=== PATIENT | male | born 1940 | race Caucasian/White ===

== ENCOUNTER 2019-06-22 11:46 | Emergency (ER) | payer MEDICARE ==
[~2019-06-22] VITALS: Ht 193 cm; Wt 113.4 kg
[~2019-06-22 11:46] MED LIST: ATENOLOL25 MG PO; COUMADIN5 MG PO; PRAVASTATIN SOD20 MG PO
--- OUTSIDE RECORDS SUMMARY | 2019-06-22 11:49 | XMS REPORT | Summary of Care ---
Author Author [facility] Organization [facility] Address Unknown Phone Unavailable Care Team Providers Care Ink Maker Name Role Phone La Montes MD PCP Reason for Visit * Reason Comments Cardiology Follow-up Benign essential HTN Encounter Details Care Team Description Date Type Department Donal Craven MD [address] [facility] [address] [place] [address] Cardiology Follow-up (Benign essential HTN) 06/13/2019 Office Visit [facility] [address] [facility] [address] [place] [address] Allergies Comments Active Allergy Reactions Severity Noted Date Codeine Phosphate 01/21/2010 Motrin Ib 01/21/2010 Penicillins 01/21/2010 documented as of this encounter (statuses as of 06/13/2019) Medications End Date Status Medication Sig Dispensed Refills Start Date Active famotidine (PEPCID) 40 MG Take 1 Tab by 0 tablet mouth two times daily. Active Multiple Take 1 Tab by 0 Vitamins-Minerals mouth daily. (CENTRUM SILVER OR) Active mometasone (NASONEX) 50 daily. 0 MCG/ACT nasal spray Active Tamsulosin HCl 0.4 MG Take by 0 CAPS mouth daily. Active Levothyroxine Sodium 25 Take by 0 MCG CAPS mouth daily. Active Coenzyme Q10 (COQ10 OR) Take by 0 mouth daily. Active Cetirizine HCl (ZYRTEC Take by 0 OR) mouth daily. Active warfarin (COUMADIN) 2.5 TAKE 1 TABLET 90 Tab 1 03/18/201 MG tablet BY MOUTH 9 DAILY DIRECTED BY INR Active atenolol (TENORMIN) 25 MG TAKE 1 TABLET 180 Tab 0 tablet BY MOUTH TWO 9 TIMES DAILY Active pravastatin (PRAVACHOL) TAKE 1 TABLET 90 Tab 0 20 MG tablet BY MOUTH 9 DAILY documented as of this encounter (statuses as of 06/13/2019) Active Problems Problem Noted Date Leg edema, right 09/16/2018 S/P TAVR (transcatheter aortic valve replacement) 03/04/2018 Dementia 11/27/2017 History of pacemaker 12/20/2016 Severe aortic stenosis 12/20/2016 Pre-syncope 12/13/2015 [facility] 12/13/2015 Tachycardia-bradycardia syndrome [facility]) 12/13/2015 H/O amaurosis fugax 12/11/2015 Chronic inflammatory demyelinating polyneuritis [facility]) 12/11/2015 Benign essential HTN 12/11/2015 Mixed hyperlipidemia 12/11/2015 Carotid artery disease [facility]) 12/11/2015 DVT (deep venous thrombosis) [facility] 12/11/2015 Pulmonary embolism [facility] 12/11/2015 Colonic polyp 12/11/2015 Lumbosacral disc disease 12/11/2015 Bronchiolitis 12/11/2015 History of tobacco abuse 12/11/2015 Chronic renal insufficiency 12/11/2015 Sleep apnea 12/11/2015 Diverticulosis of colon 12/11/2015 Peptic ulcer disease 12/11/2015 Migraine headache 12/11/2015 GERD (gastroesophageal reflux disease) 12/11/2015 Renal cyst 12/11/2015 Seborrheic keratosis 02/09/2014 History of nonmelanoma skin cancer 02/09/2014 Rosacea 01/21/2010 BCC (basal cell carcinoma), eyelid 01/21/2010 documented as of this encounter (statuses as of 06/13/2019) Social History Date Tobacco Use Types Packs/Day Years Used Former Smoker Smokeless Tobacco: Never Used Drinks/Week oz/Week Comments Alcohol Use No Sex Assigned at Date Recorded Not on file Industry Job Start Date Occupation Not on file Not on file Not on file Travel End Travel History Travel Start No recent travel history available. documented as of this encounter Last Filed Vital Signs Reading Time Taken Comments Vital Sign 130/90 06/13/2019 1:33 PM CDT Blood Pressure 69 06/13/2019 1:23 PM CDT Pulse - - Temperature - - Respiratory Rate - - Oxygen Saturation - - Inhaled Oxygen Concentration 111.6 kg (246 lb) 06/13/2019 1:23 PM CDT Weight 193 cm (6' 4") 06/13/2019 1:23 PM CDT Height 29.94 06/13/2019 1:23 PM CDT Body Mass Index documented in this encounter Progress Notes * Donal Craven MD - 06/13/2019 2:00 PM CDT Donal Craven MD Office HP/Followup Today's Date: 06/13/2019 2:15 PM Rick Umanzor is a 75 y.o. male patient. Date of : 1940 Referring MD: La Montes MD (PCP) [address] [place] [address] , [address] [place] [address] Singh Page MD (N) Address: [address] [place], [place] [address], [place] [address] [facility] Estimated body mass index is 29.94 kg/m as calculated from the following: Height as of this encounter: 6' 4" (1.93 m). Weight as of this encounter: 246 lb (111.6 kg). Body surface area is 2.45 meters squared. Present HPI 06/13/19 SInce Last Visit the following is noted:Underwent implant of Adrienne S3#26 on 01/13 11/29, Afib on Cd Standard mild AUGUSTIN and leg swelling Not on Lasix Broke left femur (pinned) February 2019 OPV 09/16/18 SInce Last Visit the following is noted: complains that he has swelling of both extremities x 2 weeks but R>L Some redness Received Lasix from LMD Still some SOB with exertion As usual all the history is from her INR=3.5 OPV 03/04/18 SInce Last Visit the following is noted: Underwent implant of Adrienne S3#26 on 02/03/18 Much improved Still some SOB but less fatigue OPV 11/26/17 Went to [facility] 11/24/17 Low BP; BUN-22, Cr=1.46; H/H= JEY=621; CXR-OK Mainly exeertional dyspnea Recent upper RSCP Neuro started Zoloft for dementia but she thinks it made him with worsening SOB, thus it was stopped OPV 12/18/16 VVI implant 09/30/16 for symptomatic bradycardia in chronic Atrial fibrillation He is really not any better Still fatigued and SOB No angina INR=3.4 Took steroids for bad left knee OPV 09/25/16 SInce Last Visit the following is noted: he has had a URI Symptoms include lethargy and exertional dyspnea Also he has had progressive deterioration in his cognitive function. Seen by thiago al neurologist No angina Last EMILIANO~ 1.2 with P/M=50/30 OPV 11/25/15 BOOP Progressive atrial fibrillation RICAS - 02/05/10 Many co-morbidities Having pre syncopal episodes which are increasing in frquency. Two this month All exertional Denies chest pain Knownincreasing Usually sees Dr Rivas (pulmonary) but saw Dr Mace in his place- CT and other te sts ordered. Though he has NO claudication, pt was prescribed Trental?? Angiography 01/26/18 TTE-implant of Adrienne S3#26 on 02/03/18; Mitral annular calcium TTE-DATE 01/16/14 03/29/15 12/13/15 06/12/16 12/19/16 11/11/17 02/04/18 03/04/18 09/16/18 06/13/19 LVEF 60 60 60 60 55 55 60 60 60 60 DI 0.30 0.27 0.61 0.51 0.44 0.45 P/M 33/18 44/24 43/23 49/22 56/35 60/32 22/ 1606/08 Max Adan 2.88 3.31 2.92 3.14 3.75 3.87 2.36 2.04 2.40 2.4 EMILIANO 1.7 1.5 1.2 1.1 1.0 1.0 pPA 45 45 40-45 TR 2+ 2+ CX-RAYS- DATE: 10/04/15 Large heart, clear lungs CT- Chest DATE:11/26/15-outside Main PA is 3.9cm Mild PIF emphysema DALLIN DOPPLER- DATE: 07/28/12 Normal Repeat outside 11/27/15-non specific CAROTID DOPPLER- DATE: 12/13/15 Right Carotid: patent stent (02/05/10) All others OK VENOUS DOPPLER- DATE:11/06/10 Pro OK HOLTERs- DATES: May 2016 Atrial fib with pauses> 4.0 sec PREVIOUS PACER CHECKs-DATES: PPM-DATE 09/30/16 03/21/19 Company BSCI BSCI Mode VVIR VVIR DOI 09/30/16 09/30/16 Gen Change EOL ~2022 ~2022 A/V pace Xx % a pacing yy % v pacing 52 % pacing other Allergies: Allergies Allergen Reactions Codeine Phosphate Motrin Ib Pcn [Penicillins] Past Medical History Diagnosis H/O amaurosis fugax Chronic inflammatory demyelinating polyneuritis Aortic valve disease-progressive by TTE Benign essential HTN Mixed hyperlipidemia Carotid artery disease- [facility] 02/09/10 DVT (deep venous thrombosis) Pulmonary embolism Colonic polyp Lumbosacral disc disease Bronchiolitis History of tobacco abuse Chronic renal insufficiency Sleep apnea Diverticulosis of colon Peptic ulcer disease Migraine headache GERD (gastroesophageal reflux disease) Renal cyst Atrial fibrillation with slow VR Surgical History: Past Surgical History: Procedure Laterality Date HX BACK SURGERY HX CHOLECYSTECTOMY, LAPAROSCOPIC HX LUMBAR DISC SURGERY HX POLYPECTOMY HX SHOULDER SURGERY Right HX SKIN CANCER EXCISION BCC Social History: Social History Socioeconomic History Marital status: Spouse name: Not on file Number of children: Not on file Years of education: Not on file Highest education level: Not on file Occupational History Occupation: retired Social Needs Financial resource strain: Not on file Food insecurity: Worry: Not on file Inability: Not on file Transportation needs: Medical: Not on file Non-medical: Not on file Tobacco Use Smoking status: Former Smoker Smokeless tobacco: Never Used Substance and Sexual Activity Alcohol use: No Drug use: No Sexual activity: Not on file Lifestyle Physical activity: Days per week: Not on file Minutes per session: Not on file Stress: Not on file Relationships Social connections: Talks on phone: Not on file Gets together: Not on file Attends sabianism service: Not on file Active member of club or organization: Not on file Attends meetings of clubs or organizations: Not on file Relationship status: Not on file Intimate partner violence: Fear of current or ex partner: Not on file Emotionally abused: Not on file Physically abused: Not on file Forced sexual activity: Not on file Other Topics Concerns: Not on file Social History Narrative Not on file Family History: Family History Problem Relation Name Age of Onset Hypertension Father CVA/Stroke Father Heart Attack Father CVA/Stroke Brother Cancer Mother Diabetes Neg Hx Cardiac Risk assessment: Hypertension- yes Hypercholesterol- yes Obesity- yes Postive Family History- yes Diabetes Mellitus- no Medications: atenolol (TENORMIN) 25 MG tablet TAKE 1 TABLET BY MOUTH TWO TIMES DAILY Cetirizine HCl (ZYRTEC OR) Take by mouth daily. Coenzyme Q10 (COQ10 OR) Take by mouth daily. famotidine (PEPCID) 40 MG tablet Take 1 Tab by mouth two times daily. Levothyroxine Sodium 25 MCG CAPS Take by mouth daily. mometasone (NASONEX) 50 MCG/ACT nasal spray daily. Multiple Vitamins-Minerals (CENTRUM SILVER OR) Take 1 Tab by mouth daily. pravastatin (PRAVACHOL) 20 MG tablet TAKE 1 TABLET BY MOUTH DAILY Tamsulosin HCl 0.4 MG CAPS Take by mouth daily. warfarin (COUMADIN) 2.5 MG tablet TAKE 1 TABLET BY MOUTH DAILY DIRECTED BY INR 12 Point ROS: General: fatigue ENT: nasal congestion, sinusitis Cardiovascular: shortness of breath on exertion GI: diverticulitis/osis : nighttime urination (nocturia) Musculoskeletal: back pain, arthritis Endocrine: hypoglycemia Allergic/Immunologic: persistent infections Physical Exam HG CARDI VITALS 06/13/2019 06/13/2019 Height 6' 4" - Weight 246 lb - BP 126/80 130/90 BP Location right arm left arm Patient Position Sitting - Pulse 69 - Resp - - BSA (Calculated - sq m) - - BMI (Calculated) - - Some recent data might be hidden General Appearance: Alert, cooperative, no distress, appears stated age Head: Normocephalic, without obvious abnormality, atraumatic Eyes: PERRL, conjunctiva/corneas clear, EOM's intact, fundi Ears: Normal TM's and external ear canals, both ears Nose: Nares normal, septum midline, mucosa normal, no drainage or sinus ten derness Throat: Lips, mucosa, and tongue normal; teeth and gums normal Neck: Supple, symmetrical, trachea midline, no adenopathy; thyroid: No enlargement/tenderness/nodules; no carotid bruit or JVD Back: Symmetric, no curvature, ROM normal, no CVA tenderness Lungs: Clear to auscultation bilaterally, respirations unlabored Chest wall: No tenderness or deformity Heart: irregular rate and rhythm, S1 S2 Murmur: none Abdomen: Soft, non-tender, bowel sounds active all four quadrants, no masses, no organomegaly Extremities: Extremities normal, atraumatic, no cyanosis or edema Skin: Skin color, texture, turgor normal, no rashes or lesions Neurologic: CNII-XII intact. Normal strength, sensation and reflexes throughout Vascular Physical Examination- Right lower extremity 2+ edema EC06/13/19 09/16/18 02/13/18 11/16/17 DECISION MAKING PLANS for PROBLEMS- Patient Active Problem List Diagnosis Rosacea BCC (basal cell carcinoma), eyelid Seborrheic keratosis History of nonmelanoma skin cancer H/O amaurosis fugax Chronic inflammatory demyelinating polyneuritis ([facility]) Benign essential HTN Mixed hyperlipidemia Carotid artery disease ([facility]) DVT (deep venous thrombosis) ([facility]) Pulmonary embolism ([facility]) Colonic polyp Lumbosacral disc disease Bronchiolitis History of tobacco abuse Chronic renal insufficiency Sleep apnea Diverticulosis of colon Peptic ulcer disease Migraine headache GERD (gastroesophageal reflux disease) Renal cyst Pre-syncope Atrial fibrillation ([facility]) Tachycardia-bradycardia syndrome ([facility]) History of pacemaker Severe aortic stenosis Dementia S/P TAVR (transcatheter aortic valve replacement) Leg edema, right TODAY'S PLAN-all old records reviewed today 1-Fax appropriate records to LMD 2- No changes made today Donal Craven MD FAC FACP [facility] Donal Craven MD FAC FACP [facility] Clinical Professor [facility] Director Market Research of PVD Services at [facility] Chief of Peripheral Vascular Medicine at [facility] at [facility] OLaurenMiguelito Medical Coker [id number] [place] [address] [email or web address] documented in this encounter Plan of Treatment Care Team Description Date Type Specialty 06/20/2019 Procedure Cardiology Visit-Tech Performed Health Maintenance Due Date Last Done Comments MEDICARE AWV 1940 TETANUS SHOT (ADULT) 1953 BMI FOLLOW UP PLAN 1956 FALL SCREEN 2003 PREVNAR >=65 (PCV13) 2003 FLU VACCINE > 6 MONTHS 04/14/2019 09/25/2016 (Declined) PNEUMOVAX >=65 (PPSV23) Completed 07/23/2009 documented as of this encounter Procedures Comments Procedure Name Priority Date/Time Associated Diagnosis ELECTROCARDIOGRAM Routine 06/13/2019 Benign essential HTN COMPLETE 2:37 PM CDT documented in this encounter Results * ELECTROCARDIOGRAM COMPLETE (06/13/2019 2:37 PM CDT) Narrative Performed At Result approved by Donal Craven MD on 06/13/19 documented in this encounter Visit Diagnoses Diagnosis S/P TAVR (transcatheter aortic valve replacement) - Primary Benign essential HTN Essential hypertension, benign documented in this encounter Insurance Type Payer Benefit Subscriber ID Effective Phone Address Plan / Dates Group Medicare MEDICARE MEDICARE xxxxxxxxxxx 2003- [address] Present [id number] [place] [address] Medicare [employer] AARP xxxxxxxxxxx Effective [address] MEDICARE [place] all [id number] SUPPLEMENT dates [facility] [place] [address] documented as of this encounter
--- OUTSIDE RECORDS SUMMARY | 2019-06-22 11:49 | XMS REPORT ---
Author Author [facility] Address Unknown Phone Unavailable Care Team Providers Care Linux Support Engineer Name Role Phone TOBY GOSS Unavailable Unavailable Problems This patient has no known problems. Allergies, Adverse Reactions, Alerts This patient has no known allergies or adverse reactions. Medications This patient has no known medications. Results Test Description Test Time Test Comments Text Results Atomic Results Result Comments BASIC METABOLIC PANEL 2018-02-04 05:54:00 SODIUM (BEAKER) (test fqjo=973) 143 meq/L 136-145 POTASSIUM (BEAKER) (test qfpa=330) 4.1 meq/L 3.5-5.1 CHLORIDE (BEAKER) (test zewa=936) 111 meq/L 98-107 CO2 (BEAKER) (test mtrs=179) 22 meq/L 22-29 BLOOD UREA NITROGEN (BEAKER) (test mngv=149) 16 mg/dL 7-21 CREATININE (BEAKER) (test yghr=122) 1.09 mg/dL 0.57-1.25 GLUCOSE RANDOM (BEAKER) (test mcjt=992) 94 mg/dL 70-105 CALCIUM (BEAKER) (test pked=698) 8.9 mg/dL 8.4-10.2 EGFR (BEAKER) (test hejd=9840) 65 mL/min/1.73 sq m ESTIMATED GFR IS NOT ACCURATE CREATININE CLEARANCE IN PREDICTING GLOMERULAR FILTRATION RATE. ESTIMATED GFR IS NOT APPLICABLE FOR DIALYSIS PATIENTS. CBC (HEMOGRAM ONLY)2018-02-04 05:35:00* Test Item Value Reference Range Comments WHITE BLOOD CELL COUNT (BEAKER) (test qurn=459) 7.3 K/ L 3.5-10.5 RED BLOOD CELL COUNT (BEAKER) (test hsgh=398) 4.10 M/ L 4.63-6.08 HEMOGLOBIN (BEAKER) (test gpqs=353) 11.2 GM/DL 13.7-17.5 HEMATOCRIT (BEAKER) (test zclq=720) 35.8 % 40.1-51.0 MEAN CORPUSCULAR VOLUME (BEAKER) (test hyjk=723) 87.3 fL 79.0-92.2 MEAN CORPUSCULAR HEMOGLOBIN (BEAKER) (test lfpj=041) 27.3 pg 25.7-32.2 MEAN CORPUSCULAR HEMOGLOBIN CONC (BEAKER) (test jdvb=033) 31.3 GM/DL 32.3-36.5 RED CELL DISTRIBUTION WIDTH (BEAKER) (test nqrl=031) 14.6 % 11.6-14.4 PLATELET COUNT (BEAKER) (test fckg=642) 166 K/CU MM 150-450 MEAN PLATELET VOLUME (BEAKER) (test oojm=786) 9.9 fL 9.4-12.4 NUCLEATED RED BLOOD CELLS (BEAKER) (test qvoc=001) 0 /100 WBC 0-0 [id number] 10:23:00* Test Item Value Reference Range Comments ACTIVATED CLOTTING TIME (BEAKER) (test olrd=310) 109 sec TESTED AT [address] [address] [id number] 09:47:00* Test Item Value Reference Range Comments ACTIVATED CLOTTING TIME (BEAKER) (test alqq=394) 252 sec TESTED AT [address] [address] [id number] 09:30:00* Test Item Value Reference Range Comments ACTIVATED CLOTTING TIME (BEAKER) (test rgbi=991) 230 sec TESTED AT [address] [address] PROTHROMBIN [id number] 06:58:00* Test Item Value Reference Range Comments PROTIME (BEAKER) (test owei=287) 15.9 seconds 11.7-14.7 INR (BEAKER) (test kvgs=679) 1.3 <=5.9 RECOMMENDED COUMADIN/WARFARIN INR THERAPY RANGESSTANDARD DOSE: 2.0 - 3.0 Inclu ignacio: PROPHYLAXIS for venous thrombosis, systemic embolization; TREATMENT for meaghan ous thrombosis and/or pulmonary embolus.HIGH RISK: Target INR is 2.5-3.5 for pat ients with mechanical heart valves.Within 24 hours, if on CoumadinBUN AND [id number] 18:57:00* Test Item Value Reference Range Comments BLOOD UREA NITROGEN (BEAKER) (test atyf=136) 17 mg/dL 7-21 CREATININE (BEAKER) (test dgiv=166) 1.23 mg/dL 0.57-1.25 EGFR (BEAKER) (test askz=0406) 57 mL/min/1.73 sq m ESTIMATED GFR IS NOT ACCURATE CREATININE CLEARANCE IN PREDICTING GLOMERULAR FILTRATION RATE. ESTIMATED GFR IS NOT APPLICABLE FOR DIALYSIS PATIENTS. B-TYPE NATRIURETIC FACTOR (BNP)2018-01-26 11:33:00* Test Item Value Reference Range Comments B-TYPE NATRIURETIC PEPTIDE (BEAKER) (test ospd=017) 370 pg/mL 0-100 [id number] 11:19:00* Test Item Value Reference Range Comments ALBUMIN (BEAKER) (test hatp=7864) 3.7 g/dL 3.5-5.0 PROTHROMBIN TIME/[id number] 10:33:00* Test Item Value Reference Range Comments PROTIME (BEAUBREE) (test wkms=231) 16.9 seconds 11.7-14.7 INR (BEAKER) (test jspx=347) 1.4 <=5.9 RECOMMENDED COUMADIN/WARFARIN INR THERAPY RANGESSTANDARD DOSE: 2.0 - 3.0 Inclu ignacio: PROPHYLAXIS for venous thrombosis, systemic embolization; TREATMENT for meaghan ous thrombosis and/or pulmonary embolus.HIGH RISK: Target INR is 2.5-3.5 for pat ients with mechanical heart valves.[id number] 08:21:00* Test Item Value Reference Range Comments POC-CREATININE (BEAUBREE) (test jnwl=5483) 1.3 mg/dL 0.6-1.3 TESTED AT [facility] [address] [facility] [address] POC-EGFR (BEAUBREE) (test sref=9713) 53 mL/min/1.73M2 CT, CTA, [id number] 17:08:00Addendum BeginsREPORT STATUS:A ADDENDUM: I agree with the nonvascular findings as reported by Dr. Hilario. A 7 mm nodule is seen in the right middle lobe, slightly increased from 2013 when it measured 5 mm. Follow-up chest CT in 6-12 months is recommended. Signed: Heriberto, Dinh MDReport Verified Date/Time: 01/13/2018 17:08:19 Reading Location: [place] [address] Angio Body Reading RoomAddendum EndsFINAL REPORT CT angiography of the thoracoabdominal aorta and pelvic arteries, 13 Jan 2018 INDICATION: This is a 77 year old male with a diagnosis of aortic stenosis presents for preprocedure TAVR assessment. This study is performed in an attempt to avoid an invasive procedure. TECHNIQUE: Spiral acquisition before and during intravenous contrast administration using a Leno multidetector CT scanner. Images were obtained before and during the dynamic passage of intravenous contrast material. Multi-planar 3-D volume-rendering reconstruction was performed using an independent workstation interactively by the interpreting physician as well as the 3-D specialist for optimal visualization of the thoracoabdominal aorta, the pelvic arteries as well as its proximal branches. Please refer to the contrast sheet scanned in the EPIC system for the amount and route of contrast given. This exam was performed according to our departmental dose-optimisation programme, which includes automated exposure control, adjustment of the mA and/or kV according to patient size and/or use of iterative reconstruction technique. Dose modulation, iterative reconstruction, and/or weight based adjustment of the mA/kV was utilized to reduce the radiation dose to as low as reasonably achievable. FINDINGS: VASCULAR: An electronic device is identified in the left upper chest, with pacing lead identified in the right- sided cardiac chambers. The central pulmonary artery is normal in calibre. The cardiac chamber demonstrate normal atrioventricular and ventriculoarterial concordance, systemic and pulmonary venous return. Coronary artery origins are normal and coronary artery calcifications identified in the LAD and LCx territor y. Minimal mitral annular calcification is identified in the posterior mitral va lve annulus. The left ventricle is normal in size. Left atrial enlargement is id entified. Patient has a diagnosis of aortic stenosis. Aortic valve is tricuspid. Agatston score is approximately 3085. The location of aortic valvular calcifica tion can be seen in reformatted data set sent to PACS. Regarding the aorta, ther e is only minimal calcification seen in the aortic root and thereafter remainder of the ascending thoracic aorta is free of calcification. There is mild calcifi cation seen in the transverse arch, descending thoracic aorta, and moderate calc ification seen in the infrarenal abdominal aorta. No acute aortic pathology is i dentified and no dissection or contained rupture is seen. However, there is athe rosclerotic ulceration identified in the distal infrarenal abdominal aorta, imag e 401 representing a spectrum of both calcified and noncalcified granuloma. Arch vessel branching pattern is normal and the visualised arch vessel has scattered calcific atherosclerosis identified. The left subclavian artery, at image 23, m easure approximately 6 to 7 mm in diameter. The right subclavian artery, at imag e 17, measure 9 to 10 mm in diameter. The coeliac axis, SMA have no obstructive lesion identified, however, calcific atherosclerosis seen in the celiac axis and calcific and noncalcific atherosclerosis that is nonobstructive is seen in the SMA. Replaced right hepatic artery is identified, a common variant. The EFE is p atent. There are single left and right renal arteries with no obstructive lesion identified. The common iliac, external iliac, common femoral, and the visualized superficial femoral arteries have no obstructive lesion identified. There is a lso atherosclerotic ulceration identified in the right common iliac arteries, fo r example image 476. Refer to below regarding the minimum dimensions. Dimensions that may be helpful TAVR as follows: Only minimal calcification is seen in the aortic root. The major and minor aortic annulus diameter measures 29.2 and 21.8 mm, respectively. The aortic annulus perimeter measured 83 mm and the cross-sect ional area measures 520 mm2. The aortic annulus diameter at the traditional LVOT and coronal LVOT measures 22.0 and 27.8 mm, respectively. Measurement was made using 30% reconstruction, with the least motion artefact. For reference purpose, per [employer] S3 brochure, recommendation are as follows: CT area between 273 to 345 mm2 (20 mm valve); 338 to 430 mm2 (23 mm valve); 430 to 546 mm2 (26 mm valve ); 540 to 683 mm2 (29 mm valve). For reference purpose, per [employer] b rochure, recommendation are as follows: CT perimeter between 56.5-62.8 mm (23 mm valve); 62.8-72.3 mm (26 mm valve); 72.3-81.7 mm (29 mm valve); and 81.7-94.2. mm (34 mm valve). Agatston Score is 3085. The sinus of Valsalva height to the takeoff of the coronary artery ostium, RCC (diastole): 13.5 mmThe sinus of Valsa lva height and the takeoff of the coronary artery ostium, LCC (diastole): 15.0 m m The sinus of Valsalva diameter, RCC (diastole): 32.8 mmThe sinus of Valsalva d iameter, LCC (diastole): 32.5 mmThe sinus of Valsalva diameter, NCC (diastole): 36.5 mm The sinotubular junction measures approximately 30.7 x 32.5 mm. The aort ic root angulation measures 49.6 degrees. The minimal and perpendicular abdomina l aortic diameter measure 13.4 and 16.7 mm, respectively, at the level of the at herosclerotic ulceration, at image 397. There is no evidence of thoracoabdomina l aortic aneurysm or stent placement present. The minimum and the perpendicular left common iliac artery measures 10.2 and 10.9 mm, respectively with no tortuo sity and mild calcific atherosclerosis present. The minimum and the perpendicul ar left external iliac artery measures 7.6 and 8.2 mm, respectively with mild to moderate tortuosity and no calcific atherosclerosis present. The minimum and the perpendicular left femoral artery measures 7.4 and 9.0 mm, respectively with minimal tortuosity and mild calcific atherosclerosis present. The minimum and the perpendicular right common iliac artery measures 8.5 and 9.0 mm, respective ly with mild tortuosity and mild calcific atherosclerosis present, at image 48 1 with localized atherosclerotic ulceration present. The minimum and the perpend icular right external iliac artery measures 8.1 and 8.3 mm, respectively with m eve-ao-doedqipq tortuosity and no calcific atherosclerosis present. The minimu m and the perpendicular right femoral artery measures 8.6 and 9.1 mm, respective ly with mild tortuosity and mild calcific atherosclerosis present. NONVASCULAR: The visualised thyroid gland has focal calcification identified, in the right th yroid lobe, at image 26, measure 5 to 6 mm in diameter. This can be further asse ssed by dedicated thyroid ultrasound scan. The chest wall and mediastinum has no acute abnormalities identified. No significant adenopathy is seen. However, the re is some small lymph nodes identified, for example, in the left hilum, measure less than 1 cm in size. In the lung windows, no obvious endobronchial lesion is seen, and no pleural effusions identified. Some dependent changes are seen in t he lung bases. Some subsegmental atelectatic changes are noted. A nodule is iden tified in the right middle lobe, at image 107, measures approximately 7 to 8 mm in diameter. In 2013, this structure measures approximately 5 to 6 mm in diamete r, image using different spatial resolution. No other nodule is identified. In t he abdomen, the liver and spleen appears unremarkable. The liver edge is smooth. No abnormal enhancing structure is identified. Hypodensities are seen in the li neeta, some are too small to characterize. The larger ones have no enhancement aft er contrast administration indicating simple in nature. The largest one, at imag e 282, measure 3.6 cm in diameter. The adrenal glands are not enlarged. The panc reas appears unremarkable. The gallbladder is not well visualized. No acute tonio l pathology is seen and no hydronephrosis or perirenal fluid collections identif ied. Small renal stones are seen, that is nonobstructive, and at image 69 of the left kidney, measure 8 mm in diameter. In addition, renal cysts identified in t he lateral aspect of the right kidney, image 337, measure 3.1 cm in diameter wit h no enhancement after contrast administration suggesting proteinaceous/hemorrha gic in nature. Another cyst is also identified, again with no significant enhanc ement seen. Bowel is not well assessed by CT angiography as enteric contrast is not given. No obvious bowel dilation is identified. Colonic diverticulum is seen in the distal colon with no evidence of acute diverticulitis. Bilateral fat-con taining inguinal hernia is seen left greater than the right. The prostate gland is mildly prominent. The bladder is unremarkable. No free air or free fluid seen abdomen and pelvis. No significant retroperitoneal adenopathy is identified. In the bony windows, no acute bony pathology is seen. Some degenerative changes are noted. CONCLUSIONS: 1. Patient has a diagnosis of aortic stenosis. The aortic valve is tricuspid. Agatston score is over 3000. By planimetry, the aortic valve area is approximately 93 sq mm. Only minimal mitral annular calcification is s een. No obvious calcification is seen in the aortic root. No acute aortic pathol ogy is identified. 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 Dimensions that may be helpful for TAVR as described above. 2. Coronary atherosclerosis seen in the left coronary system. 3. No acute pulmonary pathology is identified. A 7 to 8 mm nodule seen in the right middle lobe. This is already been present in 2 013, however, in 2013, it measures 5 to 6 mm in diameter suggesting minimal incr eased in size. This could be followed in 6-12 months time. Nevertheless, an adde ndum will be dictated thereafter, if needed. 4. Other findings as described abo ve. Calcification is identified in the right thyroid lobe that can be further as sessed by dedicated ultrasound scan of the thyroid. 5. An addendum will dictate d by the Sign Builder Radiologist regarding the nonvascular findings. Signed: Deshawn Mcdonald MDReport Verified Date/Time: 01/13/2018 16:08:18 Reading Location : [place] [address] Cardiology MRI , CTA [id number] 17:08:00Addendum BeginsREPORT STATUS:A ADDENDUM: I agree with the nonvascular findings as reported by Dr. Hilario. A 7 mm nodule is seen in the right middle lobe, slightly increased from 2013 when it measured 5 mm. Follow-up chest CT in 6-12 months is recommended. Signed: Dinh Louis Verified Date/Time: 01/13/2018 17:08:19 Reading Location: [place] [id number] Angio Body Reading R oomAddendum EndsFINAL REPORT CT angiography of the thorac oabdominal aorta and pelvic arteries, 13 Jan 2018 INDICATION: This is a 77 year old male with a diagnosis of aortic stenosis presents for preprocedure TAVR ass essment. This study is performed in an attempt to avoid an invasive procedure. TECHNIQUE: Spiral acquisition before and during intravenous contrast administrat ion using a Leno multidetector CT scanner. Images were obtained before and du ring the dynamic passage of intravenous contrast material. Multi-planar 3-D vol ume-rendering reconstruction was performed using an independent workstation inte ractively by the interpreting physician as well as the 3-D specialist for optima l visualization of the thoracoabdominal aorta, the pelvic arteries as well as it s proximal branches. Please refer to the contrast sheet scanned in the [facility] syst em for the amount and route of contrast given. This exam was performed according to our departmental dose-optimisation programme, which includes automated expos ure control, adjustment of the mA and/or kV according to patient size and/or use of iterative reconstruction technique. Dose modulation, iterative reconstructio n, and/or weight based adjustment of the mA/kV was utilized to reduce the radiat ion dose to as low as reasonably achievable. FINDINGS: VASCULAR: An electronic device is identified in the left upper chest, with pacing lead identified in the right-sided cardiac chambers. The central pulmonary artery is normal in calibre. The cardiac chamber demonstrate normal atrioventricular and ventriculoarterial concordance, systemic and pulmonary venous return. Coronary artery origins are normal and coronary artery calcifications identified in the LAD and LCx territor y. Minimal mitral annular calcification is identified in the posterior mitral va lve annulus. The left ventricle is normal in size. Left atrial enlargement is id entified. Patient has a diagnosis of aortic stenosis. Aortic valve is tricuspid. Agatston score is approximately 3085. The location of aortic valvular calcifica tion can be seen in reformatted data set sent to PACS. Regarding the aorta, ther e is only minimal calcification seen in the aortic root and thereafter remainder of the ascending thoracic aorta is free of calcification. There is mild calcifi cation seen in the transverse arch, descending thoracic aorta, and moderate calc ification seen in the infrarenal abdominal aorta. No acute aortic pathology is i dentified and no dissection or contained rupture is seen. However, there is athe rosclerotic ulceration identified in the distal infrarenal abdominal aorta, imag e 401 representing a spectrum of both calcified and noncalcified granuloma. Arch vessel branching pattern is normal and the visualised arch vessel has scattered calcific atherosclerosis identified. The left subclavian artery, at image 23, m easure approximately 6 to 7 mm in diameter. The right subclavian artery, at imag e 17, measure 9 to 10 mm in diameter. The coeliac axis, SMA have no obstructive lesion identified, however, calcific atherosclerosis seen in the celiac axis and calcific and noncalcific atherosclerosis that is nonobstructive is seen in the SMA. Replaced right hepatic artery is identified, a common variant. The EFE is p atent. There are single left and right renal arteries with no obstructive lesion identified. The common iliac, external iliac, common femoral, and the visualized superficial femoral arteries have no obstructive lesion identified. There is a lso atherosclerotic ulceration identified in the right common iliac arteries, fo r example image 476. Refer to below regarding the minimum dimensions. Dimensions that may be helpful TAVR as follows: Only minimal calcification is seen in the aortic root. The major and minor aortic annulus diameter measures 29.2 and 21.8 mm, respectively. The aortic annulus perimeter measured 83 mm and the cross-sect ional area measures 520 mm2. The aortic annulus diameter at the traditional LVOT and coronal LVOT measures 22.0 and 27.8 mm, respectively. Measurement was made using 30% reconstruction, with the least motion artefact. For reference purpose, per [employer] S3 brochure, recommendation are as follows: CT area between 273 to 345 mm2 (20 mm valve); 338 to 430 mm2 (23 mm valve); 430 to 546 mm2 (26 mm valve ); 540 to 683 mm2 (29 mm valve). For reference purpose, per [employer] b rochure, recommendation are as follows: CT perimeter between 56.5-62.8 mm (23 mm valve); 62.8-72.3 mm (26 mm valve); 72.3-81.7 mm (29 mm valve); and 81.7-94.2. mm (34 mm valve). Agatston Score is 3085. The sinus of Valsalva height to the takeoff of the coronary artery ostium, RCC (diastole): 13.5 mmThe sinus of Valsa lva height and the takeoff of the coronary artery ostium, LCC (diastole): 15.0 m m The sinus of Valsalva diameter, RCC (diastole): 32.8 mmThe sinus of Valsalva d iameter, LCC (diastole): 32.5 mmThe sinus of Valsalva diameter, NCC (diastole): 36.5 mm The sinotubular junction measures approximately 30.7 x 32.5 mm. The aort ic root angulation measures 49.6 degrees. The minimal and perpendicular abdomina l aortic diameter measure 13.4 and 16.7 mm, respectively, at the level of the at herosclerotic ulceration, at image 397. There is no evidence of thoracoabdomina l aortic aneurysm or stent placement present. The minimum and the perpendicular left common iliac artery measures 10.2 and 10.9 mm, respectively with no tortuo sity and mild calcific atherosclerosis present. The minimum and the perpendicul ar left external iliac artery measures 7.6 and 8.2 mm, respectively with mild to moderate tortuosity and no calcific atherosclerosis present. The minimum and the perpendicular left femoral artery measures 7.4 and 9.0 mm, respectively with minimal tortuosity and mild calcific atherosclerosis present. The minimum and the perpendicular right common iliac artery measures 8.5 and 9.0 mm, respective ly with mild tortuosity and mild calcific atherosclerosis present, at image 48 1 with localized atherosclerotic ulceration present. The minimum and the perpend icular right external iliac artery measures 8.1 and 8.3 mm, respectively with m ggb-ga-hwmcsaid tortuosity and no calcific atherosclerosis present. The minimu m and the perpendicular right femoral artery measures 8.6 and 9.1 mm, respective ly with mild tortuosity and mild calcific atherosclerosis present. NONVASCULAR: The visualised thyroid gland has focal calcification identified, in the right th yroid lobe, at image 26, measure 5 to 6 mm in diameter. This can be further asse ssed by dedicated thyroid ultrasound scan. The chest wall and mediastinum has no acute abnormalities identified. No significant adenopathy is seen. However, the re is some small lymph nodes identified, for example, in the left hilum, measure less than 1 cm in size. In the lung windows, no obvious endobronchial lesion is seen, and no pleural effusions identified. Some dependent changes are seen in t he lung bases. Some subsegmental atelectatic changes are noted. A nodule is iden tified in the right middle lobe, at image 107, measures approximately 7 to 8 mm in diameter. In 2013, this structure measures approximately 5 to 6 mm in diamete r, image using different spatial resolution. No other nodule is identified. In t he abdomen, the liver and spleen appears unremarkable. The liver edge is smooth. No abnormal enhancing structure is identified. Hypodensities are seen in the li neeta, some are too small to characterize. The larger ones have no enhancement aft er contrast administration indicating simple in nature. The largest one, at imag e 282, measure 3.6 cm in diameter. The adrenal glands are not enlarged. The panc reas appears unremarkable. The gallbladder is not well visualized. No acute tonio l pathology is seen and no hydronephrosis or perirenal fluid collections identif ied. Small renal stones are seen, that is nonobstructive, and at image 69 of the left kidney, measure 8 mm in diameter. In addition, renal cysts identified in t he lateral aspect of the right kidney, image 337, measure 3.1 cm in diameter wit h no enhancement after contrast administration suggesting proteinaceous/hemorrha gic in nature. Another cyst is also identified, again with no significant enhanc ement seen. Bowel is not well assessed by CT angiography as enteric contrast is not given. No obvious bowel dilation is identified. Colonic diverticulum is seen in the distal colon with no evidence of acute diverticulitis. Bilateral fat-con taining inguinal hernia is seen left greater than the right. The prostate gland is mildly prominent. The bladder is unremarkable. No free air or free fluid seen abdomen and pelvis. No significant retroperitoneal adenopathy is identified. In the bony windows, no acute bony pathology is seen. Some degenerative changes are noted. CONCLUSIONS: 1. Patient has a diagnosis of aortic stenosis. The aortic valve is tricuspid. Agatston score is over 3000. By planimetry, the aortic valve area is approximately 93 sq mm. Only minimal mitral annular calcification is s een. No obvious calcification is seen in the aortic root. No acute aortic pathol ogy is identified. 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 Dimensions that may be helpful for TAVR as described above. 2. Coronary atherosclerosis seen in the left coronary system. 3. No acute pulmonary pathology is identified. A 7 to 8 mm nodule seen in the right middle lobe. This is already been present in 2 013, however, in 2012, it measures 5 to 6 mm in diameter suggesting minimal incr eased in size. This could be followed in 6-12 months time. Nevertheless, an adde ndum will be dictated thereafter, if needed. 4. Other findings as described abo ve. Calcification is identified in the right thyroid lobe that can be further as sessed by dedicated ultrasound scan of the thyroid. 5. An addendum will dictate d by the [employer] Radiologist regarding the nonvascular findings. Signed: Deshawn cMdonaldeport Verified Date/Time: 01/13/2018 16:08:18 Reading Location : [place] [id number] Cardiology MRI
--- NOTE | 2019-06-22 12:42 | Diagnostic Imaging Report ---
EXAMINATION: HAND 3 VIEW LT - HOPD INDICATION: Fall, trauma COMPARISON: None FINDINGS: No acute fracture or dislocation. There are severe degenerative changes at the first carpometacarpal joint with [id number] contact, osteophyte formation, and lateral subluxation of the base of the first metacarpal. The soft tissues appear unremarkable. IMPRESSION: No acute osseous injury. Severe degenerative changes of the first carpometacarpal joint as above. Signed by: Nicole Ellis MD on 06/22/2019 12:38 PM
== END 2019-06-22 12:59 | disposition home or self-care (01) ==
LOC: FSED 11:46
DX: S60.222A Contusion of left hand, initial encounter (principal); W18.30XA Fall on same level, unspecified, initial encounter; Y92.008 Other place in unspecified non-institutional (private) residence as the place of occurrence of the external cause; I10 Essential (primary) hypertension; E78.5 Hyperlipidemia, unspecified; E03.9 Hypothyroidism, unspecified; Z95.810 Presence of automatic (implantable) cardiac defibrillator
CPT/HCPCS: 99283